=== PATIENT | male | born 1990 ===

== ENCOUNTER → 2018-06-15 | Outpatient (REF) | LOC: ZLAB.WCH 15:56 | DX: Z01.89 Encounter for other specified special examinations (principal) ==

== ENCOUNTER → 2018-08-17 | Outpatient (REF) ==
[2018-08-17 18:22] LABS: IRON,SERUM 44 ug/dL (35-150)
[2018-08-17 18:32] LABS: TOTAL IRON BINDING CAPACITY 357 ug/dL (261-462)
[2018-08-17 18:58] LABS: FERRITIN 73 ng/mL (18-464)
== END ==
LOC: ZLAB.WCH 18:15
PROVIDERS: Internal Medicine
DX: Z01.89 Encounter for other specified special examinations (principal)